=== PATIENT | female | born 1950 | race Caucasian/White ===

== ENCOUNTER 2016-06-07 13:07 | Inpatient (IN) | payer OTHER ==
[~2016-06-07] VITALS: Ht 154.9 cm; Wt 67.0 kg
[~2016-06-07 13:07] MED LIST: ADVAIR 250/501 DISK IH; ALBUTEROL RESCUE; AMBIEN5 MG PO; AMITRIPTYLINE H10 MG PO; ASCORBIC ACID500 M3 PO; ASPIRIN81 M1 PO; B6 PO; CALCITRIOL0.25 MCG PO; CHLORTHALIDONE25 MG PO; CIPRO500 MG PO; CLONAZEPAM1 MG PO; CYMBALTA60 MG PO; DOCUSATE SODIU100 MG PO; FLEXERIL10 MG PO; FLONASE16 GM NS; FLOVENT DISKUS1 DIS2 IH; GABAPENTIN100 MG PO; HYDROCHLOROTHIA25 MG PO; HYDROCODON-ACE1 EAC7 PO; KLONOPIN0.5 M1 PO; KLONOPIN1 MG PO; MAGNESIUM250 MG PO; MELATONIN5 M1 PO; METFORMIN HCL500 MG PO; NASAL SPRAY; NEURONTIN100 MG PO; NEURONTIN300 MG PO; NEXIUM40 MG PO; NORCO 5/3251 TABLET PO; NORVASC10 MG PO; ONGLYZA2.5 MG PO; PRAVACHOL20 MG PO; PROTONIX40 MG PO; RANITIDINE HCL150 MG PO; ROCALTROL0.25 MCG PO; STOOL SOFTENER100 MG PO; TRADJENTA5 MG PO; TRAMADOL HCL50 MG PO; TYLENOL EXTRA500 MG PO; VENTOLIN HFA18 GM IH; VITAMIN B-12500 MC3 PO; VITAMIN D250000 UNIT PO; VITAMIN D31000 UNI2 PO; ZESTRIL,PRINIVI40 MG PO; ZOLOFT50 M1 PO; ZOLOFT50 MG PO
[2016-06-07 14:14] LABS: HEMATOCRIT 32.9 % (36.0-46.0); MCHC 31.3 G/DL (30.0-36.0); MCV 95.9 FL (83-99); MEAN PLAT.VOLUME 10.1 uM^3 (9.5-12.4); PLATELET COUNT 226 K/uL (156-360); RBC DIS.WIDTH-CV 12.4 % (11.8-14.6); RBC DIS.WIDTH-SD 43.6 % (39-53); RED BLOOD COUNT 3.43 M/uL (3.80-5.20)
[2016-06-07 14:24] LABS: CHLORIDE 102 mEq/L (99-109); POTASSIUM 4.1 mEq/L (3.7-5.4); SODIUM 141 mEq/L (136-147)
[2016-06-07 14:25] LABS: GLUCOSE 127 mg/dL (70-99)
[2016-06-07 14:27] LABS: ANION GAP 17 MEQ/L (2-14)
[2016-06-07 14:29] LABS: GFR ESTIMATE (CALCULATED) 20 mL/min/
[2016-06-07 14:30] LABS: UREA NITROGEN (BUN) 25 mg/dL (9-23)
[2016-06-07 15:13] LABS: CREATINE KINASE 1325 IU/L (1-294)
[2016-06-07] MEDS ORDERED: HYGROTON25 MG PO (16:45)
[2016-06-07] MEDS ORDERED: ULTRAM50 MG PO (16:46)
[2016-06-07] MEDS ORDERED: PROLIA60 MG/1 ML SC (16:46)
[2016-06-07] MEDS ORDERED: PROCARDIA XL60 MG PO (16:49)
[2016-06-07 22:53] VITALS: BP 177/76
[2016-06-07 23:02] LABS: POINT-OF-CARE METER ID UU14162508
[2016-06-08 07:00] VITALS: BP 155/68
[2016-06-08 07:01] LABS: MCH 30.3 PG (29.0-34.0); MCHC 31.7 G/DL (30.0-36.0); MCV 95.5 FL (83-99); MEAN PLAT.VOLUME 9.9 uM^3 (9.5-12.4); PLATELET COUNT 208 K/uL (156-360); RBC DIS.WIDTH-CV 12.3 % (11.8-14.6); RBC DIS.WIDTH-SD 42.5 % (39-53); RED BLOOD COUNT 3.14 M/uL (3.80-5.20); WHITE BLOOD COUNT 6.6 K/uL (4.1-10.2)
[2016-06-08 07:36] LABS: ALKALINE PHOSPHATASE 82 IU/L (3-129); ANION GAP 11 MEQ/L (2-14); CHLORIDE 102 MEQ/L (99-109); GFR ESTIMATE (CALCULATED) 23 mL/min/; GLUCOSE 105 mg/dL (70-99); POTASSIUM 3.9 MEQ/L (3.7-5.4); SAMPLE HEMOLYSIS CHECK 0; SAMPLE ICTERIC CHECK 0; SAMPLE LIPEMIA CHECK 0; SODIUM 140 MEQ/L (136-147); TOTAL BILIRUBIN 0.6 MG/DL (0.0-1.0); TOTAL CK 1259 IU/L (1-294); UREA NITROGEN (BUN) 21 mg/dL (9-23)
[2016-06-08 07:38] LABS: CREATINE KINASE 1259 IU/L (1-294)
[2016-06-08 11:05] VITALS: BP 137/60
[2016-06-08 16:00] VITALS: BP 142/65
[2016-06-08 19:35] VITALS: BP 147/67
[2016-06-08 21:44] LABS: POINT-OF-CARE METER ID UU14162508
[2016-06-08 23:07] VITALS: BP 130/70
[2016-06-09 03:20] VITALS: BP 135/63
[2016-06-09 07:20] LABS: HEMATOCRIT 27.5 % (36.0-46.0); MCH 29.9 PG (29.0-34.0); MCHC 31.6 G/DL (30.0-36.0); MCV 94.5 FL (83-99); MEAN PLAT.VOLUME 10.5 uM^3 (9.5-12.4); PLATELET COUNT 223 K/uL (156-360); RBC DIS.WIDTH-CV 11.9 % (11.8-14.6); RBC DIS.WIDTH-SD 41.2 % (39-53); RED BLOOD COUNT 2.91 M/uL (3.80-5.20); WHITE BLOOD COUNT 6.2 K/uL (4.1-10.2)
[2016-06-09 08:01] VITALS: BP 147/67
[2016-06-09 08:06] LABS: Estimated Average Glucose 131 mg/dL (70-123); HEMOGLOBIN A1c (GLYCOHEMOGLOB) 6.2 % HGB (Below 5.7)
[2016-06-09 08:56] LABS: INTACT PARATHYROID HORMONE 232 pg/mL (10-69)
[2016-06-09 09:32] LABS: ALKALINE PHOSPHATASE 69 IU/L (3-129); ANION GAP 9 MEQ/L (2-14); CHLORIDE 106 MEQ/L (99-109); CREATINE KINASE 949 IU/L (1-294); DIRECT BILIRUBIN 0.1 mg/dL (0.0-0.3); GFR ESTIMATE (CALCULATED) 21 mL/min/; GLUCOSE 80 mg/dL (70-99); MAGNESIUM 1.9 mg/dl (1.3-2.7); POTASSIUM 4.1 MEQ/L (3.7-5.4); SODIUM 142 MEQ/L (136-147); UREA NITROGEN (BUN) 24 mg/dL (9-23)
[2016-06-09 09:35] LABS: TOTAL BILIRUBIN 0.4 MG/DL (0.0-1.0)
[2016-06-09 09:46] LABS: AMYLASE 18 IU/L (1-118); LIPASE 30 U/L (1.0-51.0)
[2016-06-09 10:40] VITALS: BP 120/56
[2016-06-09 16:15] VITALS: BP 130/65
[2016-06-09 17:25] LABS: POINT-OF-CARE METER ID UU14162508
[2016-06-09 19:15] VITALS: BP 133/67
[2016-06-09 21:39] LABS: POINT-OF-CARE METER ID UU14162508
[2016-06-09 23:37] VITALS: BP 142/68
[2016-06-10 03:22] VITALS: BP 154/70
[2016-06-10 03:39] LABS: POINT-OF-CARE METER ID UU14162508
[2016-06-10 06:45] VITALS: BP 135/63
[2016-06-10 11:30] VITALS: BP 135/62
[2016-06-10 13:49] LABS: ALKALINE PHOSPHATASE 71 IU/L (3-129); ANION GAP 9 MEQ/L (2-14); CHLORIDE 103 MEQ/L (99-109); CREATINE KINASE 580 IU/L (1-294); GFR ESTIMATE (CALCULATED) 19 mL/min/; POTASSIUM 4.3 MEQ/L (3.7-5.4); SAMPLE HEMOLYSIS CHECK 0; SAMPLE ICTERIC CHECK 0; SAMPLE LIPEMIA CHECK 0; SODIUM 139 MEQ/L (136-147); UREA NITROGEN (BUN) 25 mg/dL (9-23)
[2016-06-10 13:55] LABS: GLUCOSE 118 mg/dL (70-99); TOTAL BILIRUBIN 0.3 MG/DL (0.0-1.0)
[2016-06-10 16:40] VITALS: BP 153/67
[2016-06-10 16:54] LABS: POINT-OF-CARE METER ID UU14162508
[2016-06-10 20:00] VITALS: BP 158/92
[2016-06-10 21:55] LABS: POINT-OF-CARE METER ID UU14162508
[2016-06-11 00:30] VITALS: BP 162/68
[2016-06-11 04:09] LABS: POINT-OF-CARE METER ID UU14162508
[2016-06-11 04:30] VITALS: BP 148/70
[2016-06-11 07:05] LABS: POINT-OF-CARE METER ID UU14162508
[2016-06-11 08:05] VITALS: BP 158/68
[2016-06-11 11:25] VITALS: BP 132/57
[2016-06-11 11:50] LABS: POINT-OF-CARE METER ID UU14162508
[2016-06-11] MEDS ORDERED: GABAPENTIN300 MG PO (13:06)
[2016-06-11] MEDS ORDERED: CALCITRIOL0.25 MCG PO (13:06)
[2016-06-11] MEDS ORDERED: VITAMIN D31000 UNI2 PO (13:06)
== END 2016-06-11 15:33 | disposition home or self-care (01) | DRG 558 ==
LOC: EME 13:07 → 2EAST 20:52 → EDOF 20:52 → 2EAST 22:33
PROVIDERS: Internal Medicine; Pediatrics; Physician Assistant
DX: M62.82 Rhabdomyolysis (principal); E11.22 Type 2 diabetes mellitus with diabetic chronic kidney disease; N18.3 Chronic kidney disease, stage 3 (moderate); E83.51 Hypocalcemia; M81.0 Age-related osteoporosis without current pathological fracture; E89.0 Postprocedural hypothyroidism; R22.43 Localized swelling, mass and lump, lower limb, bilateral; E86.0 Dehydration; I12.9 Hypertensive chronic kidney disease with stage 1 through stage 4 chronic kidney disease, or unspecified chronic kidney disease; R29.0 Tetany; D64.9 Anemia, unspecified; K21.9 Gastro-esophageal reflux disease without esophagitis; E55.9 Vitamin D deficiency, unspecified; Z87.891 Personal history of nicotine dependence
CPT/HCPCS: 71020; 80048; 80053; 80069; 80076; 81003; 82040; 82150; 82306; 82310; 82330; 82550; 82550 91; 82553; 82948; 83036; 83690; 83735; 83880; 83970; 84100; 84443; 85027; 93970; 99281; 99285; J0610; J1644; J1815; J7030; J7050